=== PATIENT | female | born 1935 | race Caucasian/White ===

== ENCOUNTER → 2023-08-21 06:50 | Outpatient (REF) | payer OTHER, SELFPAY | LOC: RAD 06:50 | PROVIDERS: ATTENDING PHYSICIAN Family Medicine | DX: M25.552 Pain in left hip (principal) | CPT/HCPCS: 73523 ==

== ENCOUNTER 2023-09-22 11:23 | Outpatient (RCR) | payer OTHER, SELFPAY | END 2023-09-22 23:59 | disposition home or self-care (01) | LOC: RPT 11:23 | PROVIDERS: ATTENDING PHYSICIAN Family Medicine | DX: M25.552 Pain in left hip (principal); Z73.6 Limitation of activities due to disability; R26.89 Other abnormalities of gait and mobility | CPT/HCPCS: 97110; 97140; 97162; 97530 ==

== ENCOUNTER 2023-09-25 12:39 | Outpatient (RCR) | payer OTHER, SELFPAY | END 2023-10-06 14:40 | disposition home or self-care (01) | LOC: RPT 12:39 | PROVIDERS: ATTENDING PHYSICIAN Family Medicine | DX: M25.552 Pain in left hip (principal); Z73.6 Limitation of activities due to disability | CPT/HCPCS: 97110 ==

== ENCOUNTER → 2024-04-05 14:12 | Outpatient (REF) | payer OTHER, SELFPAY | LOC: WDC 14:12 | PROVIDERS: ATTENDING PHYSICIAN Nurse Practitioner Family | DX: Z12.31 Encounter for screening mammogram for malignant neoplasm of breast (principal) | CPT/HCPCS: 77063; 77067 ==

== ENCOUNTER → 2025-04-07 12:36 | Outpatient (REF) | payer OTHER, SELFPAY | LOC: WDC 12:36 | PROVIDERS: ATTENDING PHYSICIAN Nurse Practitioner Family | DX: Z12.31 Encounter for screening mammogram for malignant neoplasm of breast (principal) | CPT/HCPCS: 77063; 77067 ==